=== PATIENT | male | born 1985 | race African-American/Black ===

== ENCOUNTER 2016-11-17 07:41 | Emergency (ER) | payer MEDICAID ==
[~2016-11-17] VITALS: Ht 167.6 cm; Wt 82.0 kg
[2016-11-17 07:46] VITALS: BP 130/67
== END 2016-11-17 08:56 | disposition home or self-care (01) ==
LOC: ER 08:28
DX: Z00.8 Encounter for other general examination (principal)
CPT/HCPCS: 99281

== ENCOUNTER 2016-11-18 21:35 | Emergency (ER) | payer MEDICAID ==
[~2016-11-18] VITALS: Ht 175.3 cm; Wt 82.0 kg
[2016-11-18 22:22] VITALS: BP 114/81
[2016-11-19] MEDS ORDERED: BACITRACIN ZINC OINT UDPKT TOP ONE (01:00)
[2016-11-19] MEDS ORDERED: TETANUS, DIPHTHERIA, PERTUSSIS VAC/PF 0.5ML (>7YR OLD) IM ONE (01:00)
[2016-11-19] MEDS ORDERED: IBUPROFEN 600MG TABLET PO ONE (01:00)
[2016-11-19] MEDS ORDERED: LIDOCAINE HCL 1% 20ML VIAL (Pyxis) INJ MC ONE (01:00)
== END 2016-11-19 03:08 | disposition home or self-care (01) ==
LOC: ER 21:35
DX: S61.214A Laceration without foreign body of right ring finger without damage to nail, initial encounter (principal); W45.8XXA Other foreign body or object entering through skin, initial encounter; Y93.89 Activity, other specified; Y92.89 Other specified places as the place of occurrence of the external cause; Y99.8 Other external cause status
CPT/HCPCS: 12001; 90471; 90715; 99283; J3490; Z7610

== ENCOUNTER 2022-10-22 04:10 | Emergency (ER) | payer BC, MEDICAID ==
[~2022-10-22] VITALS: Ht 175.3 cm; Wt 87.0 kg
[2022-10-22 04:12] VITALS: BP 124/84
[2022-10-22] MEDS ORDERED: CEPH500C2 MT (04:43)
[2022-10-22] MEDS ORDERED: IBUP-2029 MT (04:43)
== END 2022-10-22 04:55 | disposition home or self-care (01) ==
LOC: ER 04:10
DX: L03.012 Cellulitis of left finger (principal)
CPT/HCPCS: 99281; 99283